=== PATIENT | female | born 1980 ===

== ENCOUNTER 2017-12-20 10:40 | Inpatient (IN) | payer MEDICAID ==
[2017-12-20 11:16] VITALS: BMI 38.3
[2017-12-20] MEDS ORDERED: Penicillin G 5 Million Unit Vial IVPB ONE (11:18)
[2017-12-20] MEDS ORDERED: Betamethasone Soluspan 30 mg/5mL Inj Susp IM ONE (11:18)
[2017-12-20] MEDS ORDERED: Lactated Ringer's 1,000 ML IV SCH (11:30)
[2017-12-20] MEDS ORDERED: Oxytocin 20 units in LR 2,000 ML IV ONE (11:37)
[2017-12-20] MEDS ORDERED: Oxycodone/Acetaminophen 5/325 mg Tab PO PRN (11:44)
[2017-12-20] MEDS ORDERED: Benzocaine/Menthol 20%-0.5% Topical Spray (60 ml) TOP PRN (11:44)
[2017-12-20 14:50] LABS: SQUAMOUS EPITHIAL 33 /hpf (0-5); URINE BACTERIA RARE (<OCC); URINE BILIRUBIN NEGATIVE (NEGATIVE); URINE BLOOD NEGATIVE (NEGATIVE); URINE CLARITY Hazy (Clear); URINE COLOR Yellow (YELLOW); URINE GLUCOSE (UA) NORMAL (Normal); URINE LEUKOCYTE ESTERASE TRACE Leu/uL (Negative); URINE PROTEIN NEGATIVE (NEGATIVE); URINE UROBILINOGEN NORMAL mg/dL (0.2-1.0)
[2017-12-20 14:51] LABS: BASO # 0.1 K/uL (0.0-0.2); BASO % 0.7 % (0.0-2.0); EOS # 0.1 K/uL (0.0-0.7); EOS % 0.8 % (0.0-4.0); LYMPH % 12.1 % (20.0-40.0); MEAN CELL VOLUME 91.2 fL (81.0-99.0); MEAN CORPUSCULAR HEMOGLOBIN 31.9 pg (27.0-31.0); MEAN CORPUSCULAR HGB CONC 34.9 g/dL (33.0-37.0); MEAN PLATELET VOLUME 12.7 fL (7.2-11.7); MONO # 0.4 K/uL (0.0-0.8); MONO % 5.1 % (0.0-10.0); NEUT # 6.6 K/uL (1.8-7.0); NEUT % 81.3 % (50.0-75.0); NRBC % 0.1 % (0.0-2.0); RBC 4.07 Mil/uL (3.80-5.20); RED CELL DISTRIBUTION WIDTH 14.3 % (11.5-14.5); WHITE BLOOD COUNT 8.1 K/uL (4.8-10.8)
[2017-12-20 14:56] LABS: ALB/GLOB RATIO 1.1 (1.0-2.1); ALBUMIN 3.8 g/dL (3.5-5.0); ALT/SGPT 20 U/L (9-52); AST/SGOT 27 U/L (14-36); BLOOD UREA NITROGEN 9 mg/dL (7-17); CALCIUM 8.7 mg/dl (8.6-10.4); GFR AFRICAN-AMERICAN > 60; GFR NON-AFRICAN AMERICAN > 60
[2017-12-21 08:29] LABS: BASO % 0.4 % (0.0-2.0); EOS % 0.8 % (0.0-4.0); HEMOGLOBIN 11.4 g/dL (11.0-16.0); LYMPH # 1.3 K/uL (1.0-4.3); LYMPH % 19.7 % (20.0-40.0); MEAN CELL VOLUME 91.7 fL (81.0-99.0); MEAN CORPUSCULAR HEMOGLOBIN 31.8 pg (27.0-31.0); MEAN CORPUSCULAR HGB CONC 34.6 g/dL (33.0-37.0); MEAN PLATELET VOLUME 11.4 fL (7.2-11.7); MONO # 0.3 K/uL (0.0-0.8); MONO % 4.7 % (0.0-10.0); NEUT # 4.8 K/uL (1.8-7.0); NEUT % 74.4 % (50.0-75.0); NRBC % 0.1 % (0.0-2.0); RBC 3.57 Mil/uL (3.80-5.20); RED CELL DISTRIBUTION WIDTH 14.4 % (11.5-14.5); WHITE BLOOD COUNT 6.5 K/uL (4.8-10.8)
[2017-12-21 08:49] VITALS: O2SAT 99
--- NOTE | 2017-12-21 23:09 | OBPPN ---
Datetime: 12/21/2017 10:44 PP Pain Prov: Within normal limits PP Nausea Prov: Denies PP Flatus Prov: Yes PP BM Prov: Yes PP Breasts Prov: Not Done PP Heart Prov: Normal PP Lungs Prov: Normal PP Abdomen/Uterus Prov: Normal PP Lochia Prov: Not Done PP Vulva/Perineum Prov: Not Done PP Extremities Prov: Normal PP Impression Prov: Normal progression PP Plan Prov: Continue present management PP Progress Note Prov: Patient seen and examined at bedside. Patient reports pain is well controlled . She admits to mild lochia, urinating without any difficulty, passing flatus, B.M., and ambulating w ith no complaints. Patient is with no complaints.She denies any chest pain, shortness o f breath, fevers, chills, calf tenderness upon ambulation, abdominal pain, changes in vision, palpita tions, or any other complaints. Vitals: WNL as stated above in vital sign table Physical Exam: Head: Normocephalic, atraumatic Breasts: no cracked nipples. Cardiovascular: RRR, no murmurs, rubs, or gallops appreciated Pulmonary: Clear to auscultation bilaterally, no rhonchi or wheezing appreciated Abdomen: Non-distended, Fundal height at the level of umbilicus; firm., mobile, non tender. Extremities: Non pitting edema appreciated. Normal ROM Labs: 8.1>13/37.1<118 6.5>11.4/32.8<101 A+, Rubella Immune Assestement and Plan: 37 year old female , s/p pre-term vaginal delivery at 35 weeks. -Acetaminophen 650mg PO Q6 PRN for pain -Continue Colace -Continue Dermoplast for perineal discomfort -Encouraged patient to ambulate through the halls. -Encouraged . -Encouraged hydration. -Anticipate possible discharge tomorrow. All plans discussed with Dr. Gonzalez. Ankit Mendez DO. PGY-1 Atending Note: patient seen and evaluated with the resident. I agree with the above as documented. Patient is clincially stable.
[2017-12-22 01:08] VITALS: TEMP 98.1
--- NOTE | 2017-12-22 07:45 | CP.PCM.DIS ---
Provider - Provider Date of Admission: 12/20/17 11:06 Attending physician: Brandee Luis Time Spent in preparation of Discharge (in minutes): 40 Hospital Course - Lab Results Lab Results: Most Recent Lab Values WBC 6.5 K/uL (4.8-10.8) 12/21/17 08:12 RBC 3.57 Mil/uL (3.80-5.20) L 12/21/17 08:12 Hgb 11.4 g/dL (11.0-16.0) 12/21/17 08:12 Hct 32.8 % (34.0-47.0) L 12/21/17 08:12 MCV 91.7 fL (81.0-99.0) 12/21/17 08:12 MCH 31.8 pg (27.0-31.0) H 12/21/17 08:12 MCHC 34.6 g/dL (33.0-37.0) 12/21/17 08:12 RDW 14.4 % (11.5-14.5) 12/21/17 08:12 Plt Count 101 K/uL (130-400) L 12/21/17 08:12 MPV 11.4 fL (7.2-11.7) 12/21/17 08:12 Neut % (Auto) 74.4 % (50.0-75.0) 12/21/17 08:12 Lymph % (Auto) 19.7 % (20.0-40.0) L 12/21/17 08:12 [place] % (Auto) 4.7 % (0.0-10.0) 12/21/17 08:12 Eos % (Auto) 0.8 % (0.0-4.0) 12/21/17 08:12 Baso % (Auto) 0.4 % (0.0-2.0) 12/21/17 08:12 Neut # (Auto) 4.8 K/uL (1.8-7.0) 12/21/17 08:12 Lymph # (Auto) 1.3 K/uL (1.0-4.3) 12/21/17 08:12 [place] # (Auto) 0.3 K/uL (0.0-0.8) 12/21/17 08:12 Eos # (Auto) 0.0 K/uL (0.0-0.7) 12/21/17 08:12 Baso # (Auto) 0.0 K/uL (0.0-0.2) 12/21/17 08:12 Differential Comment 12/20/17 14:32 Sodium 138 mmol/L (132-148) 12/20/17 14:32 Potassium 3.8 mmol/L (3.6-5.2) 12/20/17 14:32 Chloride 108 mmol/L (98-107) H 12/20/17 14:32 Carbon Dioxide 19 mmol/L (22-30) L 12/20/17 14:32 Anion Gap 15 (10-20) 12/20/17 14:32 BUN 9 mg/dL (7-17) 12/20/17 14:32 Creatinine 0.5 mg/dL (0.7-1.2) L 12/20/17 14:32 Est GFR ( Amer) > 60 12/20/17 14:32 Est GFR (Non-Af Amer) > 60 12/20/17 14:32 Random Glucose 69 mg/dL (65-105) 12/20/17 14:32 Calcium 8.7 mg/dl (8.6-10.4) 12/20/17 14:32 Total Bilirubin 0.5 mg/dL (0.2-1.3) 12/20/17 14:32 AST 27 U/L (14-36) 12/20/17 14:32 ALT 20 U/L (9-52) 12/20/17 14:32 Alkaline Phosphatase 281 U/L (38-126) H 12/20/17 14:32 Total Protein 7.5 g/dL (6.3-8.3) 12/20/17 14:32 Albumin 3.8 g/dL (3.5-5.0) 12/20/17 14:32 Globulin 3.6 gm/dL (2.2-3.9) 12/20/17 14:32 Albumin/Globulin Ratio 1.1 (1.0-2.1) 12/20/17 14:32 Urine Color Yellow (YELLOW) 12/20/17 14:32 Urine Clarity Hazy (Clear) 12/20/17 14:32 Urine pH 6.0 (5.0-8.0) 12/20/17 14:32 Ur Specific [place] 1.018 (1.003-1.030) 12/20/17 14:32 Urine Protein Negative mg/dL (NEGATIVE) 12/20/17 14:32 Urine Glucose (UA) Normal mg/dL (Normal) 12/20/17 14:32 Urine Ketones Negative mg/dL (NEGATIVE) 12/20/17 14:32 Urine Blood Negative (NEGATIVE) 12/20/17 14:32 Urine Nitrate Negative (NEGATIVE) 12/20/17 14:32 Urine Bilirubin Negative (NEGATIVE) 12/20/17 14:32 Urine Urobilinogen Normal mg/dL (0.2-1.0) 12/20/17 14:32 Ur Leukocyte Esterase Trace [place]/uL (Negative) 12/20/17 14:32 Urine WBC (Auto) 6 /hpf (0-5) H 12/20/17 14:32 Urine RBC (Auto) 2 /hpf (0-3) 12/20/17 14:32 Ur Squamous Epith Cells 33 /hpf (0-5) H 12/20/17 14:32 Urine Bacteria Rare (<OCC) 12/20/17 14:32 RPR Nonreactive (NONREACTIVE) 12/20/17 14:32 HIV 1&2 Antibody Screen Negative (NEGATIVE) 12/20/17 14:32 Blood Type A POSITIVE 12/20/17 14:40 Antibody Screen Negative 12/20/17 14:40 - Hospital Course Hospital Course: 37 year old female , s/p vaginal delivery at 35 weeks with no past medical history comes into the emergency department with contractions. Patient was found to be in labor and delivered. Patient had no complications during and after delivering baby. Upon today's visit patient was ambulating, passing urine and bowels without complaint and pain level was controlled. Patient was seen and determined stable for discharge today. Discharge Instructions: 1.F/u with OBGYN within six weeks. 2.Motrin 600mg Q6 PRN for pain control. 3.Encouraged hydration. 4.Advised patient to return to hospital for any new or worsening symptoms. Plan discussed with Attending, Dr. Luis. Discharge Exam - Head Exam Head Exam: NORMAL INSPECTION, NORMOCEPHALIC - Eye Exam Eye Exam: EOMI, Normal appearance, PERRL Pupil Exam: NORMAL ACCOMODATION - Respiratory Exam Respiratory Exam: Clear to PA & Lateral, UNREMARKABLE - Cardiovascular Exam Cardiovascular Exam: REGULAR RHYTHM, +S1, +S2 - GI/Abdominal Exam GI & Abdominal Exam: Normal Bowel Sounds, Unremarkable - Back Exam Back exam: NORMAL INSPECTION. absent: CVA tenderness (L), CVA tenderness (R), paraspinal tenderness - Neurological Exam Neurological exam: Alert, CN II-XII Intact - Psychiatric Exam Psychiatric exam: Normal Affect, Normal Mood - Skin Skin Exam: Dry, Intact Discharge Plan - Follow Up Plan Condition: GOOD Disposition: HOME/ ROUTINE Instructions: Diet, Hemorrhage, Jaundice, Babies (DC) , Vaginal Delivery (DC), How to Lay Your Down to Sleep, Car Seat Safety , , Feeding Your Infant, Your Baby, [place] Appearance
--- NOTE | 2017-12-22 08:35 | OBHP ---
Datetime: 12/22/2017 08:31 IP Adm Impression: , intrauterine IP Admit Plan: Admit to unit; Initiate labor protocol Admit Comment, IP Provider: Pt presented to [facility] in [facility]. Pt states that she had late care. Her due date is based on her 3rd trimester US. GBS status unknown. POBHx: x 2 PGYN: negative PMHx negative social: negative x 2 All: NKDA SVE: 5/100/0 A/P: Labor. 1) Vitals stable. 2) Admit 3) anticipate vaginal delivery. 4) recommend bethmethasone. Pelvic Type - PN: Adequate Extremities - PN: Normal Abdomen - PN: Normal Back - PN: Normal Breast - PN: Normal Lungs - PN: Normal Heart - PN: Normal Thyroid - PN: Normal Neurologic - PN: Normal HEENT - PN: Normal General - PN: Normal FHR - Baseline A Provider: 150 Membranes, Provider: Intact Contraction Comments Provider: [id number] Comments, ACOG Physical Exam: SVE: 5/100/0 Gestation - Est Wks by US: 35.0 Vital Signs Provider: Reviewed NICHD Variability Prov Fetus A: Moderate 6-25bpm NICHD Accel Fetus A IP Provider: [id number] NICHD Decel Fetus A IP Provider: None Dilatation, Provider: 5 Effacement, Provider: 100 Station, Provider: 0 Genitourinary Exam: Normal DTRs - PN: Normal
--- NOTE | 2017-12-22 08:40 | OBDS ---
DELIVERY PERSONNEL Delivery Doctor: Anna Man [employer] Division Chair: Poncho Keri RN MATERNAL INFORMATION Delivery Anesthesia: None Estimated Blood Loss (ml): 200 Placenta Cultured: No Maternal Complications: Precipitous Labor (<3hrs) Provider Comments: PT had precipitous delivery, by 3rd trimester US. PT doing well. no compl aints. Lochia minimal. Pain minimal Labs: WNL. A/P S/P delivery PPD#2. 1) Vitals stable 2) Discharge home. LABOR SUMMARY EDC: 01/22/2018 00:00 No. Babies in Womb: 1 Attempted: No Labor Anesthesia: None LABOR INFORMATION Reason for Induction: Not Applicable Onset of Labor: 12/20/2017 08:00 Complete Dilatation: 12/20/2017 11:35 Oxytocin: N/A Group B Beta Strep: Not Done Antibiotics # of Doses: 1 Antibiotics Time of Last Dose: 1135 Steroids Given: None Reason Steroids Not Administered: Not Applicable MEMBRANES Membranes Rupture Method: Artificial Rupture of Membranes: 12/20/2017 11:40 Length of Rupture (hrs): 0.07 Amniotic Fluid Color: Clear Amniotic Fluid Amount: Moderate Amniotic Fluid Odor: Normal STAGES OF LABOR Stage 1 hrs: 3 Stage 1 min: 35 Stage 2 hrs: 0 Stage 2 min: 9 Stage 3 hrs: 0 Stage 3 min: 3 Total Time in Labor hrs: 3 Total Time in Labor min: 47 VAGINAL DELIVERY Episiotomy: None Laceration Extension: N/A Laceration Type: None Initial Vag Sponge Count: 10 Final Vag Sponge Count: 10 Initial Vag Sharps Count: 0 Final Vag Sharps Count: 0 Sponge Count Correct: Yes; Vaginal Sweep Performed Sharps Count Correct: Yes CSECTION DELIVERY Labor: Labor BABY A INFORMATION Infant Delivery Date/Time: 12/20/2017 11:44 Method of Delivery: Vaginal Born in Route : No : N/A Forceps: N/A Vacuum Extraction: N/A Shoulder Dystocia : No SHOULDER DYSTOCIA BABY A Delivery Date/Time: 12/20/2017 11:44 PRESENTATION/POSITION BABY A Presentation: Cephalic Cephalic Presentation: Vertex Vertex Position: Left Occipital Anterior Breech Presentation: N/A PLACENTA INFORMATION BABY A Placenta Delivery Time : 12/20/2017 11:47 Placenta Method of Delivery: Spontaneous Placenta Status: Delivered SCORES BABY A Heart Rate 1 min: >100 bpm Resp Effort 1 min: Good Cry Reflex Irritability 1 min: Cough or Sneeze or Pulls Away Muscle Tone 1 min: Active Motion Color 1 min: Body [place], Extremities Blue Resuscitation Effort 1 min: Tactile Stimulation SCORE 1 MIN: 9 Heart Rate 5 min: >100 bpm Resp Effort 5 min: Good Cry Reflex Irritability 5 min: Cough or Sneeze or Pulls Away Muscle Tone 5 min: Active Motion Color 5 min: Body [place], Extremities Blue SCORE 5 MIN: 9 INFANT INFORMATION BABY A Gestational Age at Delivery: 35.2 Gestational Status: Outcome : Liveborn Infant Condition : Stable Infant Sex: Female IDENTIFICATION/MEDS BABY A ID Band Number: [id number] ID Band Location: Left Leg; Left Arm Sensor Applied: Yes Sensor Number: [id number] Sensor Location : Cord Clamp Vitamin K Given : Aquamephyton 1 mg IM; Left Thigh Erythromycin Given: Given Both Eyes WEIGHT/LENGTH BABY A Infant Birthweight (gms): 2590 Weight (lb): 5 Infant Weight (oz): 11 Length Inches: 18.00 Length cms: 45.7 CORD INFORMATION BABY A No. Cord Vessels: t Nuchal Cord : N/A Cord Blood Taken: Yes Suction: None RESUSCITATION BABY C Dr Signature: ulisses man
--- NOTE | 2017-12-22 08:42 | OBDCSUM ---
Datetime: 12/22/2017 08:39 Discharged to, Provider: Home Follow up at, Provider: 6 weeks PP Disch Instr Activity: Normal activity Disch Instr Diet: Regular Discharge Instructions, Provider: Routine instructions given Discharge Diagnosis, Provider: Labor Discharge Time: 12/22/2017 08:41 Disch Referrals: None Contraception discussed, Prov: Yes Discharge Comment, Provider: delivery. PPD#2. Preciptious delivery. Labs: WNL A/P: 35 @ 35 2/ PPD# 1) Vitals:stable 2) [facility] home.
[2017-12-22 18:35] VITALS: BP 129/81; PULSE 64; RESP 18
== END 2017-12-22 14:00 | disposition home or self-care (01) | DRG 775 ==
LOC: C.EROB 10:40 → C.4D 11:06 → C.4M 14:04
PROVIDERS: ADMIT Obstetrics & Gynecology; ATTEND Obstetrics & Gynecology
PROC: 10E0XZZ Delivery of Products of Conception, External Approach (ICD-10-PCS; principal; 2017-12-20)
PROC: 10907ZC Drainage of Amniotic Fluid, Therapeutic from Products of Conception, Via Natural or Artificial Opening (ICD-10-PCS; 2017-12-20)
DX: O60.14X0 Preterm labor third trimester with preterm delivery third trimester, not applicable or unspecified (principal); O62.3 Precipitate labor; Z3A.35 35 weeks gestation of pregnancy; Z37.0 Single live birth